=== PATIENT | male | born 1950 | race Caucasian/White ===

== ENCOUNTER → 2020-01-29 18:35 | Outpatient (ROUT) | payer MEDICARE, SELFPAY ==
[2020-01-29 18:42] LABS: Bacteria Urine None Seen; RBC Urine None Seen (0-5/HPF); WBC Urine None Seen (0-5/HPF)
[2020-01-29 19:10] LABS: Appearance Urine UA CLEAR; Bilirubin Urine UA NEGATIVE (NEGATIVE); Color Urine UA YELLOW; Glucose Urine UA NEGATIVE (Negative); Ketones Urine UA NEGATIVE (NEGATIVE); Leukocyte Esterase Urine UA NEGATIVE (NEGATIVE); Nitrite Urine UA NEGATIVE (Negative); Occult Blood Urine UA NEGATIVE (Negative); Protein Urine UA NEGATIVE (Negative); Urobilinogen Urine UA 0.2 E.U./dL (0.2)
[2020-01-29 19:16] LABS: Alanine Aminotransferase 21 IU/L (<50); Albumin 4.2 g/dL (3.5-5.0); Albumin Globulin Ratio 1.7 (1.0-2.8); Alkaline Phosphatase 97 U/L (38-126); Aspartate Aminotransferase 28 IU/L (17-59); BUN Creatinine Ratio 15.1 (6-22); Bilirubin Total 0.4 mg/dL (0.2-1.3); Blood Urea Nitrogen 13 mg/dL (9-20); Calcium 9.6 mg/dL (8.4-10.2); Carbon Dioxide 28 mmol/L (22-32); Chloride 104 mmol/L (98-107); Cholesterol 181 mg/dL (140-199); Estimated Glomerular Filt Rate > 60.0 mL/min (>60); Globulin 2.5 g/dL (1.7-4.1); Glucose 101 mg/dL (80-110); HDL Cholesterol 54 mg/dL (40-60); HEMOLYSIS < 15 (0-50); LDL Cholesterol Calculated 96 mg/dL (<100); Potassium 4.6 mmol/L (3.4-5.1); Sodium 139 mmol/L (137-145); Total Protein 6.7 g/dL (6.3-8.2); Triglycerides 156 mg/dL (35-150)
[2020-01-29 19:24] LABS: Culture Indicated Urine Cult Not Indicated
[2020-01-29 19:25] LABS: NT-proBNP (BNP-Adult 18+) 68 pg/mL (<125)
[2020-01-29 19:46] LABS: TSH w/ Reflex to FT4 2.52 uIU/mL (0.47-4.68)
[2020-01-29 19:49] LABS: Hematocrit 47.3 % (41-53); Hemoglobin 16.2 g/dL (13.5-17.5); Mean Corpuscular HGB Conc 34.2 % (30-36); Mean Corpuscular Volume 96.5 fL (80-100); Platelet Count 168 X10^3/uL (150-400); Red Cell Distribution Width 12.8 % (11.6-14.8); White Blood Cell Count 7.2 X10^3/uL (4.5-11.0)
[2020-01-29 19:53] LABS: Add Manual Diff / Slide Review YES
[2020-01-29 20:04] LABS: Vitamin B12 388 pg/mL (239-931)
[2020-01-29 20:18] LABS: Neutrophils Absolute Manual 3456 /uL (3000-5900); RBC Morphology Normal Morphology; Total Cells Counted 100
== END ==
PROVIDERS: Visit Provider Internal Medicine
DX: Z13.220 Encounter for screening for lipoid disorders (principal); R06.00 Dyspnea, unspecified; N40.1 Benign prostatic hyperplasia with lower urinary tract symptoms; R00.2 Palpitations; H93.13 Tinnitus, bilateral
CPT/HCPCS: 80053; 80061; 81001; 82607; 83880; 84153; 84443; 85025

== ENCOUNTER → 2020-02-06 07:43 | Outpatient (CLI) | payer MEDICARE, SELFPAY ==
--- NOTE | 2020-02-06 | DI.US.S_ITS ---
PROCEDURE: US CAROTID DOPPLER BI INDICATIONS: SCREENING TECHNIQUE: Color and pulse Doppler interrogation was performed of both carotid systems, with image documentation and velocity measurements. COMPARISON: None. FINDINGS: Stenosis calculations are based on SRU (Society of Radi[employer] in Ultras[employer]) criteria. Right side: Brachial blood pressure: 127/74 mm Hg. Common carotid artery peak systolic velocity: 86 cm/sec. Internal carotid artery peak systolic velocity: 91 cm/sec. Internal carotid artery end diastolic velocity: 30 cm/sec. External carotid artery peak systolic velocity: 106 cm/sec. ICA/CCA peak systolic ratio: 1.1 . Ramirez scale imaging description: Mild scattered plaque. Percent internal carotid artery stenosis: Less than 50% . Vertebral artery: Flow direction is antegrade. Left side: Brachial blood pressure: 121/72 mm Hg. Common carotid artery peak systolic velocity: 95 cm/sec. Internal carotid artery peak systolic velocity: 74 cm/sec. Internal carotid artery end diastolic velocity: 30 cm/sec. External carotid artery peak systolic velocity: 104 cm/sec. ICA/CCA peak systolic ratio: 0.8 . Ramirez scale imaging description: Mild scattered plaque. Percent internal carotid artery stenosis: Less than 50% . Vertebral artery: Flow direction is antegrade. IMPRESSION: Less than 50% bilateral internal carotid artery stenosis. Dictated by: Perez Aguirre [facility] Interpreted: Chad Macias MD on 02/06/2020 at 9:08 Approved by: Chad Macias M.D. on 02/06/2020 at 10:08
--- NOTE | 2020-02-06 | DI.US.S_ITS ---
PROCEDURE: US ABD AORTA ANEURYSM SCREEN INDICATIONS: SCREENING TECHNIQUE: Real time scanning was performed of the aorta and iliac arteries, with image documentation. COMPARISON: None. FINDINGS: Aorta: Proximal aortic diameter measures 2.2 cm. Mid-aorta measures 1.8 cm. Distal aortic diameter is 1.5 cm. Iliac arteries: Right common iliac artery measures 1.1 cm. Left common iliac artery measures 1.0 cm. IMPRESSION: No abdominal aortic or proximal common iliac artery aneurysm. Dictated by: Perez COSME Interpreted: Chad Mcaias MD on 02/06/2020 at 9:08 Approved by: Chad Macias M.D. on 02/06/2020 at 10:08
== END ==
PROVIDERS: PCP Internal Medicine; Referring Provider Internal Medicine; Visit Provider Internal Medicine
DX: Z13.6 Encounter for screening for cardiovascular disorders (principal); I65.23 Occlusion and stenosis of bilateral carotid arteries
CPT/HCPCS: 76706; 93880

== ENCOUNTER → 2020-02-21 15:12 | Outpatient (CLI) | payer MEDICARE, SELFPAY ==
[2020-02-21 16:34] LABS: Hematocrit 43.2 % (41-53); Mean Corpuscular HGB Conc 34.7 % (30-36); Mean Corpuscular Hemoglobin 33.1 PG (26-34); Mean Corpuscular Volume 95.6 fL (80-100); Platelet Count 172 X10^3/uL (150-400); Red Blood Cell Count 4.52 X10^6/uL (4.5-5.9); Red Cell Distribution Width 12.9 % (11.6-14.8); White Blood Cell Count 8.3 X10^3/uL (4.5-11.0)
[2020-02-21 17:16] LABS: Neutrophils Absolute Manual 4980 /uL (3000-5900); Total Cells Counted 100
[2020-02-21 17:17] LABS: RBC Morphology Normal Morphology
== END ==
PROVIDERS: PCP Internal Medicine; Referring Provider Internal Medicine; Visit Provider Internal Medicine
DX: D72.825 Bandemia (principal)
CPT/HCPCS: 36415; 85025

== ENCOUNTER → 2020-05-01 09:10 | Outpatient (CLI) | payer MEDICARE, SELFPAY ==
[2020-05-01 11:06] LABS: COVID19 -Nasal RAPID Negative (Negative)
== END ==
PROVIDERS: PCP Internal Medicine; Visit Provider Physician Assistant
DX: Z01.812 Encounter for preprocedural laboratory examination (principal); Z20.828 Contact with and (suspected) exposure to other viral communicable diseases
CPT/HCPCS: 87635; C9803

== ENCOUNTER → 2020-05-02 07:42 | Outpatient (CLI) | payer MEDICARE, SELFPAY ==
--- NOTE | 2020-05-02 17:33 | DI.NM.S_ITS ---
DATE OF SERVICE: 05/02/2020 PROCEDURE PERFORMED: Exercise treadmill stress and rest myocardial perfusion imaging with gating to assess ejection fraction and regional wall motion. ORDERING PROVIDER: Dr. Angelica Watt. INDICATION: The patient is a 69-year-old male with exertional dyspnea. EXERCISE TREADMILL TESTING: The patient was able to exercise for 8 minutes 40 seconds on a standard Bryan protocol, suggesting very good exercise capacity with an ZACH of -20%. He had a normal heart rate and blood pressure response, achieving a maximum heart rate of 156 BPM (103% of his predicted maximum). He had no chest discomfort or significant dyspnea. His resting ECG is normal and there are no significant ST-segment shifts with exercise. He had rare PACs and PVCs but no complex ectopy. At 7 minutes 16 seconds of exercise, at a heart rate of 126 BPM, 26.3 millicuries of technetium-99m Myoview was injected. The patient was imaged 15 minutes later using a gated SPECT acquisition protocol. Earlier in the day while at rest, he was injected with 12.2 millicuries of technetium-99m Myoview and was imaged 30 minutes later, again using a gated SPECT acquisition protocol. FINDINGS: 1. Raw data: There is fairly good myocardial tracer activity although there is some motion that requires correction. Lung/heart ratio is normal at 0.23 with a normal TID ratio 1.02. 2. Quantitated gated SPECT: Post-stress ejection fraction is estimated at 71% without any focal wall motion abnormality. Resting ejection fraction is 77% with a normal resting end-diastolic volume of 97 mL. 3. Myocardial perfusion imaging: Post-stress supine images shows a fairly normal myocardial perfusion pattern without any significant perfusion defects, supported by normal perfusion imaging in the prone position. The resting images show some scattered heterogeneity, but no areas of improvement. IMPRESSION: 1. Normal myocardial perfusion study. 2. No evidence of myocardial ischemia or previous myocardial infarction. 3. Normal left ventricular systolic function without any focal wall motion abnormality. 4. Good exercise capacity without angina or ECG evidence of ischemia. KavonadamzainVik - AYO/samuel/enrico doc#: [id number]/job#: [id number] dd: 05/02/2020 15:19:00 dt: 05/02/2020 17:02:00 DICTATING MD/COPIES TO: Armando Ruvalcaba MD; Angelica Watt MD COPIES MNE: HARISH;
== END ==
PROVIDERS: PCP Internal Medicine; Referring Provider Internal Medicine; Visit Provider Internal Medicine
DX: R06.00 Dyspnea, unspecified (principal); R00.2 Palpitations; R11.0 Nausea; R06.02 Shortness of breath
CPT/HCPCS: 78452; 93017; A9502

== ENCOUNTER → 2020-12-26 10:56 | Outpatient (CLI) | payer MEDICARE, SELFPAY ==
--- NOTE | 2020-12-26 | DI.RAD.S_ITS ---
PROCEDURE: XR LUMBAR SPINE 2-3V INDICATIONS: Low back pain TECHNIQUE: 3 views of the lumbar spine were acquired. COMPARISON: None. FINDINGS: There are 5 [id number] lumbar type vertebral bodies. Mild levoscoliosis at L3-L4. Otherwise normal alignment. No listhesis. Vertebral body heights maintained. Disc height loss from L2-L3 through L5-S1 with varying degrees of facet arthropathy. There may be mild to moderate neural foraminal narrowing from L3-L4 through L5-S1. Sacroiliac joint spaces are maintained. IMPRESSION: Lower lumbar spine degenerative changes, overall mild-moderate. Dictated by: Bran Lamar M.D. on 12/26/2020 at 13:53 Approved by: Bran Lamar M.D. on 12/26/2020 at 13:55
== END ==
PROVIDERS: PCP Internal Medicine; Referring Provider Internal Medicine; Visit Provider Internal Medicine
DX: M54.5 Low back pain (principal); M47.816 Spondylosis without myelopathy or radiculopathy, lumbar region; M47.817 Spondylosis without myelopathy or radiculopathy, lumbosacral region
CPT/HCPCS: 72100

== ENCOUNTER → 2021-08-25 10:05 | Outpatient (CLI) | payer OTHER, SELFPAY ==
--- NOTE | 2021-08-25 | DI.RAD.S_ITS ---
PROCEDURE: XR HIP W PEL IF DONE RT 2V INDICATIONS: RIGHT LEG PAIN TECHNIQUE: AP pelvis with lateral view(s) of the right hip(s). COMPARISON: None. FINDINGS: Bones: No fractures or dislocations. Pelvic ring appears intact. No suspicious bony lesions. Mild hip and sacroiliac joint degeneration bilaterally. Soft tissues: The visualized bowel gas pattern is normal. No suspicious soft tissue calcifications. IMPRESSION: 1. No fracture. If clinical symptoms persist or clinical suspicion for pathology is high, a repeat examination in 7-10 days, or advanced imaging such as CT or MRI is suggested for further evaluation. 2. Mild degenerative joint disease. Dictated by: Taina Vaughan M.D. on 08/25/2021 at 17:31 Approved by: Taina Vaughan M.D. on 08/25/2021 at 17:37
== END ==
PROVIDERS: PCP Internal Medicine; Referring Provider Internal Medicine; Visit Provider Internal Medicine
DX: M16.0 Bilateral primary osteoarthritis of hip (principal); M46.1 Sacroiliitis, not elsewhere classified; M79.604 Pain in right leg
CPT/HCPCS: 73502

== ENCOUNTER → 2023-01-08 14:01 | Outpatient (CLI) | payer MEDICARE, SELFPAY ==
[2023-01-08 14:27] LABS: Hematocrit 44.5 % (41-53); Hemoglobin 15.4 g/dL (13.5-17.5); Mean Corpuscular HGB Conc 34.6 % (30-36); Mean Corpuscular Hemoglobin 33.2 PG (26-34); Mean Corpuscular Volume 95.9 fL (80-100); Platelet Count 173 X10^3/uL (150-400); Red Blood Cell Count 4.64 X10^6/uL (4.5-5.9); White Blood Cell Count 9.5 X10^3/uL (4.5-11.0)
[2023-01-08 14:36] LABS: Hemoglobin A1C% w Est Avg Glu 5.3 % (4.0-6.0)
[2023-01-08 14:55] LABS: Alanine Aminotransferase 20 IU/L (<50); Albumin 4.4 g/dL (3.5-5.0); Albumin Globulin Ratio 1.8 (1.0-2.8); Alkaline Phosphatase 66 U/L (38-126); Aspartate Aminotransferase 25 IU/L (17-59); BUN Creatinine Ratio 16.5 (6-22); Bilirubin Total 0.6 mg/dL (0.2-1.3); Blood Urea Nitrogen 14 mg/dL (9-20); Calcium 9.2 mg/dL (8.4-10.2); Carbon Dioxide 24 mmol/L (22-32); Chloride 106 mmol/L (98-107); Cholesterol 146 mg/dL (140-199); Estimated Glomerular Filt Rate > 60 mL/min (>60); Globulin 2.4 g/dL (1.7-4.1); Glucose 120 mg/dL (80-110); HDL Cholesterol 50 mg/dL (40-60); HEMOLYSIS < 15 (0-50); LDL Cholesterol Calculated 59 mg/dL (<100); Potassium 4.1 mmol/L (3.4-5.1); Sodium 139 mmol/L (137-145); Total Protein 6.8 g/dL (6.3-8.2); Triglycerides 183 mg/dL (35-150)
[2023-01-08 15:24] LABS: Prostate Specific Antigen 3.35 ng/mL (0.10-4.00)
== END ==
PROVIDERS: PCP Internal Medicine; Referring Provider Internal Medicine; Visit Provider Internal Medicine
DX: E78.2 Mixed hyperlipidemia (principal); N40.1 Benign prostatic hyperplasia with lower urinary tract symptoms; N13.8 Other obstructive and reflux uropathy; R03.0 Elevated blood-pressure reading, without diagnosis of hypertension
CPT/HCPCS: 36415; 80053; 80061; 83036; 84153; 84443; 85027

== ENCOUNTER → 2023-02-10 07:13 | Outpatient (CLI) | payer MEDICARE, SELFPAY ==
[2023-02-10 09:31] LABS: Testosterone 287 ng/dL (71.8-623)
== END ==
PROVIDERS: PCP Internal Medicine; Referring Provider Urology; Visit Provider Urology
DX: R68.82 Decreased libido (principal)
CPT/HCPCS: 36415; 84403

== ENCOUNTER → 2023-02-13 08:04 | Outpatient (CLI) | payer MEDICARE, SELFPAY ==
[2023-02-13 09:31] LABS: Testosterone 307 ng/dL (71.8-623)
== END ==
PROVIDERS: PCP Internal Medicine; Referring Provider Urology; Visit Provider Urology
DX: R68.82 Decreased libido (principal)
CPT/HCPCS: 36415; 84403

== ENCOUNTER → 2024-01-11 11:57 | Outpatient (CLI) | payer MEDICARE, SELFPAY ==
[2024-01-11 13:03] LABS: Hemoglobin A1C% w Est Avg Glu 5.3 % (4.0-6.0)
[2024-01-11 13:07] LABS: Aspartate Aminotransferase 30 IU/L (17-59); BUN Creatinine Ratio 14.8 (6-22); Blood Urea Nitrogen 13 mg/dL (9-20); Calcium 9.2 mg/dL (8.4-10.2); Carbon Dioxide 24 mmol/L (22-32); Chloride 105 mmol/L (98-107); Cholesterol 152 mg/dL (140-199); Estimated Glomerular Filt Rate > 60 mL/min (>60); Glucose 92 mg/dL (80-110); HDL Cholesterol 60 mg/dL (40-60); HEMOLYSIS 16 (0-50); LDL Cholesterol Calculated 62 mg/dL (<100); Potassium 4.6 mmol/L (3.4-5.1); Sodium 137 mmol/L (137-145); Triglycerides 151 mg/dL (35-150)
[2024-01-11 13:36] LABS: Prostate Specific Antigen 3.39 ng/mL (0.10-4.00)
[2024-01-11 13:39] LABS: Testosterone 302 ng/dL (71.8-623)
== END ==
PROVIDERS: PCP Internal Medicine; Referring Provider Internal Medicine; Visit Provider Internal Medicine
DX: R79.89 Other specified abnormal findings of blood chemistry (principal); E78.2 Mixed hyperlipidemia; N40.1 Benign prostatic hyperplasia with lower urinary tract symptoms; N13.8 Other obstructive and reflux uropathy; R03.0 Elevated blood-pressure reading, without diagnosis of hypertension; R73.01 Impaired fasting glucose
CPT/HCPCS: 36415; 80048; 80061; 83036; 84153; 84403; 84450

== ENCOUNTER → 2024-05-11 09:03 | Outpatient (CLI) | payer MEDICARE, SELFPAY ==
[2024-05-11 09:32] LABS: Appearance Urine UA CLEAR; Bilirubin Urine UA NEGATIVE (NEGATIVE); Color Urine UA YELLOW; Glucose Urine UA NEGATIVE (Negative); Ketones Urine UA NEGATIVE (NEGATIVE); Leukocyte Esterase Urine UA NEGATIVE (NEGATIVE); Nitrite Urine UA NEGATIVE (Negative); Occult Blood Urine UA TRACE-INTACT (Negative); Protein Urine UA NEGATIVE (Negative); Specific Gravity Urine UA <=1.005 (1.000-1.035); Urobilinogen Urine UA 0.2 E.U./dL (0.2); pH Urine UA 6.5 (4.5-8.0)
== END ==
PROVIDERS: PCP Internal Medicine; Referring Provider Urology; Visit Provider Urology
DX: R31.21 Asymptomatic microscopic hematuria (principal)
CPT/HCPCS: 81003

== ENCOUNTER → 2024-08-17 09:29 | Outpatient (CLI) | payer MEDICARE, SELFPAY ==
--- NOTE | 2024-08-17 09:30 | DI.CT.S_ITS ---
PROCEDURE: CT IVP A/P W/WO INDICATIONS: hematuria TECHNIQUE: Optional 5 mm thick noncontrast images acquired from the diaphragm to the symphysis pubis. After the administration of intravenous contrast, 5 mm thick images acquired from the diaphragm to the symphysis pubis after a 10-minute delay. 2 mm thick coronal and sagittal reformats were then performed of the kidneys and ureters. For radiation dose reduction, the following was used: automated exposure control, adjustment of mA and/or kV according to patient size. COMPARISON: None. FINDINGS: Image quality: Diagnostic. Kidneys and Ureters: Both kidneys are normal in size, without hydronephrosis or nephrolithiasis. No perinephric fat stranding. There is normal bilateral renal enhancement. Renal calyces appear normal in morphology when filled with contrast. Opacified portions of both ureters demonstrate normal caliber Bladder: Small right bladder diverticulum. No calcified bladder stones. OTHER: Lower chest: Right lung base pulmonary nodules x2 measuring 0.5 cm, (10/09). Liver: No solid mass. Gallbladder: No radiopaque gallstones or wall thickening. Biliary ducts: No biliary dilation. Pancreas: No ductal dilation. Spleen: Size is within normal limits. Adrenal Glands: No adrenal nodules. Stomach and Bowel: Normal colonic caliber, without significant wall thickening. Diverticulosis. Normal appendix. Peritoneum: No abnormal intraperitoneal fluid. No free air. Ventral Wall: No hernia. Abdominal Nodes: No retroperitoneal or mesenteric adenopathy by size criteria. Vessels: Aorta and inferior vena cava are normal in size. PELVIS: Pelvic Organs: Prominent prostate gland. Pelvic Nodes: No enlarged lymph nodes. Miscellaneous: No inguinal hernias are seen. Bones: No aggressive osseous abnormality. T12 intraosseous hemangioma. Multilevel DDD. Sclerotic focus at the left ilium. IMPRESSION: 1. No kidney stones. No hydronephrosis. 2. No solid renal mass. No upper urinary tract filling defect. 3. Prominent prostate gland. Right bladder diverticulum suggesting bladder outlet obstruction. Dictated by: Genaro Stafford M.D. on 08/17/2024 at 21:21 Approved by: Genaro Stafford M.D. on 08/17/2024 at 21:33
[2024-08-17 10:33] LABS: Estimated Glomerular Filt Rate > 60 mL/min (>60)
== END ==
PROVIDERS: Radiology Diagnostic Radiology; PCP Internal Medicine; Referring Provider Urology; Visit Provider Urology
DX: N32.3 Diverticulum of bladder (principal); R31.21 Asymptomatic microscopic hematuria; R31.1 Benign essential microscopic hematuria; R91.8 Other nonspecific abnormal finding of lung field
CPT/HCPCS: 36415; 74178; 82565; Q9967

== ENCOUNTER → 2024-11-22 10:44 | Outpatient (CLI) | payer MEDICARE, SELFPAY ==
--- NOTE | 2024-11-22 10:46 | DI.RAD.S_ITS ---
PROCEDURE: XR ANKLE RT MIN 3V INDICATIONS: right ankle pain, no trauma TECHNIQUE: 3 views of the ankle were acquired. COMPARISON: None. FINDINGS: Bones: Incompletely unified fracture of medial malleolus results in mild deformity. There is also slight lateral malleolar deformity which is likely stigmata of old healed fracture. Tibiotalar and talocalcaneal joints: Normal in width and alignment without arthritic change. Soft tissues: Moderate calcification of the plantar tendon insertion on the calcaneus. There is mild diffuse soft tissue swelling IMPRESSION: Old fractures of the medial malleoli and, likely , the lateral malleolus with minimal deformity. Dictated by: Quintin Regalado M.D. on 11/23/2024 at 11:52 Approved by: Quintin Regalado M.D. on 11/23/2024 at 11:54
== END ==
PROVIDERS: PCP Internal Medicine; Referring Provider Internal Medicine; Visit Provider Internal Medicine
DX: S96.911A Strain of unspecified muscle and tendon at ankle and foot level, right foot, initial encounter (principal); Z87.81 Personal history of (healed) traumatic fracture; X58.XXXA Exposure to other specified factors, initial encounter
CPT/HCPCS: 73610

== ENCOUNTER → 2025-02-14 09:26 | Outpatient (CLI) | payer MEDICARE, SELFPAY ==
[2025-02-14 10:42] LABS: Hemoglobin A1C% w Est Avg Glu 5.7 % (4.0-6.0)
[2025-02-14 10:52] LABS: Blood Urea Nitrogen 14 mg/dL (9-20); Calcium 9.2 mg/dL (8.4-10.2); Carbon Dioxide 25 mmol/L (22-32); Chloride 103 mmol/L (98-107); Cholesterol 129 mg/dL (140-199); Estimated Glomerular Filt Rate > 60 mL/min (>60); Glucose 92 mg/dL (70-99); HDL Cholesterol 52 mg/dL (40-60); HEMOLYSIS < 15 (0-50); Potassium 4.8 mmol/L (3.4-5.1); Sodium 138 mmol/L (137-145); Triglycerides 110 mg/dL (35-150)
[2025-02-14 10:58] LABS: Hematocrit 46.1 % (41-53); Hemoglobin 15.8 g/dL (13.5-17.5); Mean Corpuscular HGB Conc 34.3 % (30-36); Mean Corpuscular Hemoglobin 32.4 PG (26-34); Mean Corpuscular Volume 94.3 fL (80-100); Platelet Count 174 X10^3/uL (150-400)
[2025-02-14 11:22] LABS: Prostate Specific Antigen 5.65 ng/mL (0.10-4.00); TSH w/ Reflex to FT4 1.64 uIU/mL (0.47-4.68)
== END ==
PROVIDERS: PCP Internal Medicine; Referring Provider Internal Medicine; Visit Provider Internal Medicine
DX: N13.8 Other obstructive and reflux uropathy (principal); R73.01 Impaired fasting glucose; E78.2 Mixed hyperlipidemia; N40.1 Benign prostatic hyperplasia with lower urinary tract symptoms; I10 Essential (primary) hypertension; R31.21 Asymptomatic microscopic hematuria; N52.9 Male erectile dysfunction, unspecified; Z68.30 Body mass index [BMI] 30.0-30.9, adult
CPT/HCPCS: 36415; 51798; 80048; 80061; 81002; 83036; 84153; 84443; 84450; 85027; 99213